=== PATIENT | female | born 1955 | race Two or more races ===

== ENCOUNTER 2021-10-24 13:46 | Outpatient (CLI) | payer OTHER | END 2021-10-24 13:59 | disposition home or self-care (01) | LOC: MAMO-SONO 13:46 | PROVIDERS: ATTEND Obstetrics & Gynecology | DX: N60.11 Diffuse cystic mastopathy of right breast (principal); N60.12 Diffuse cystic mastopathy of left breast; Z12.31 Encounter for screening mammogram for malignant neoplasm of breast; R92.0 Mammographic microcalcification found on diagnostic imaging of breast ==

== ENCOUNTER 2025-08-17 08:27 | Outpatient (CLI) | payer OTHER | END 2025-08-17 08:32 | disposition home or self-care (01) | LOC: RAD 08:27 | DX: R05.9 Cough, unspecified (principal); J15.9 Unspecified bacterial pneumonia; Z12.31 Encounter for screening mammogram for malignant neoplasm of breast; I71.40 Abdominal aortic aneurysm, without rupture, unspecified; Z13.820 Encounter for screening for osteoporosis ==

== ENCOUNTER 2025-08-22 11:59 | Outpatient (CLI) | payer OTHER | END 2025-08-22 12:00 | disposition home or self-care (01) | LOC: NUCLEAR 11:59 | DX: Z13.820 Encounter for screening for osteoporosis (principal); M81.0 Age-related osteoporosis without current pathological fracture ==